=== PATIENT | male | born 1980 | race Caucasian/White ===

== ENCOUNTER 2021-08-04 10:07 | Emergency (ER) | payer OTHER ==
[2021-08-04 12:51] LABS: HEMOGLOBIN 14.5 gm/dl (14.0-17.5); RED BLOOD COUNT 4.73 M/UL (4.20-5.50); WHITE BLOOD COUNT 6.5 K/UL (4.5-11.0)
[2021-08-04 13:20] LABS: BUN/CREATININE RATIO 7 (0-10)
== END 2021-08-04 16:00 | disposition left against medical advice (07) ==
LOC: ER1 10:07
PROVIDERS: Emergency Medicine
DX: U07.1 COVID-19 (principal); F17.210 Nicotine dependence, cigarettes, uncomplicated; Z88.2 Allergy status to sulfonamides; Z88.8 Allergy status to other drugs, medicaments and biological substances
CPT/HCPCS: 71045; 80048; 82550; 82553; 83880; 84484; 85025; 99281; U0002